=== PATIENT | female | born 1990 | race American Indian/Alaskan Native ===

== ENCOUNTER 2017-08-05 10:07 | Emergency (ER) | payer BC ==
[2017-08-05 10:30] VITALS: BP 122/76
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
[2017-08-05] MEDS ORDERED: NORCO 5/325 PO ONE (12:06)
[2017-08-05] MEDS ORDERED: FLEXERIL PO ONE (12:06)
--- NOTE | 2017-08-05 13:53 | XRay Report ---
LEFT FEMUR: HISTORY: pain AP and lateral views of the femur demonstrate normal mineralization and contours for this patient's age. No destructive changes are noted and the adjacent soft tissues are normal. IMPRESSION: Normal left femur.
--- NOTE | 2017-08-05 13:54 | XRay Report ---
LUMBOSACRAL SPINE, 3 VIEWS: History: Back pain Findings: The vertebral bodies, disk spaces and posterior elements are intact. No compression deformity or malalignment. The SI joints are symmetric and unremarkable. Impression: 1. No evidence for acute injury to the lumbar spine.
--- NOTE | 2017-08-05 13:54 | XRay Report ---
ROUTINE CHEST, TWO VIEWS: HISTORY: chest pain. The trachea, heart, mediastinal contour, lung english and bony thorax are unremarkable. IMPRESSION: Unremarkable chest x-ray.
--- NOTE | 2017-08-05 13:54 | XRay Report ---
THORACIC SPINE, 2 VIEWS: HISTORY: back pain. Normal bone mineralization. No evidence for compression deformity, malalignment, or bone lesion. The posterior ribs are intact. The paraspinal soft tissues are within normal limits. IMPRESSION: Thoracic spine within normal limits.
== END 2017-08-05 15:45 | disposition home or self-care (01) ==
LOC: ED 10:07
DX: S39.012A Strain of muscle, fascia and tendon of lower back, initial encounter (principal); S70.12XA Contusion of left thigh, initial encounter; S29.9XXA Unspecified injury of thorax, initial encounter; V89.2XXA Person injured in unspecified motor-vehicle accident, traffic, initial encounter; Y93.89 Activity, other specified; Y92.89 Other specified places as the place of occurrence of the external cause; Y99.8 Other external cause status
CPT/HCPCS: 71020; 72072; 72100; 81025; 99284